=== PATIENT | male | born 1995 | race African-American/Black ===

== ENCOUNTER 2020-06-14 | Emergency (ER) | payer OTHER ==
[2020-06-14] MEDS ORDERED: TORADOL PO (00:50)
== END 2020-06-14 01:15 | disposition home or self-care (01) ==
DX: L60.0 Ingrowing nail (principal)

== ENCOUNTER 2020-07-01 | Emergency (ER) | payer OTHER ==
[~2020-07-01] MED LIST: TORADOL PO
[2020-07-01] MEDS ORDERED: TESSALON PERLE100 MG PO (16:59)
== END 2020-07-01 17:05 | disposition home or self-care (01) ==
DX: B34.9 Viral infection, unspecified (principal); E66.9 Obesity, unspecified; Z20.822 Contact with and (suspected) exposure to COVID-19

== ENCOUNTER 2021-12-04 20:57 | Emergency (ER) | payer OTHER ==
[~2021-12-04] VITALS: Ht 170.2 cm; Wt 150.0 kg
[~2021-12-04 20:57] MED LIST changes: +TESSALON PERLE100 MG PO
[2021-12-04] MEDS ORDERED: GENTAMICIN SULF5 ML OU (21:56)
[2021-12-04] MEDS ORDERED: CORTISPORIN OTI10 ML AD (21:56)
[2021-12-05 02:09] VITALS: BP 153/97
== END 2021-12-04 23:00 | disposition home or self-care (01) ==
LOC: ED 20:57
DX: H60.91 Unspecified otitis externa, right ear (principal); H10.9 Unspecified conjunctivitis; E66.9 Obesity, unspecified

== ENCOUNTER 2022-08-25 21:46 | Emergency (ER) | payer OTHER ==
[~2022-08-25] VITALS: Ht 167.6 cm; Wt 145.2 kg
[~2022-08-25 21:46] MED LIST changes: +CORTISPORIN OTI10 ML AD; +GENTAMICIN SULF5 ML OU
[2022-08-25 23:18] LABS: BASO% 0.5 % (0-3); EOS% 3.5 % (0-8); HEMATOCRIT 47.6 % (39.0-50.0); IMMATURE GRANULOCYTES 0.1 % (0.0-5.0); LYMPH% 24.3 % (15-41); MEAN CELL VOLUME 84.8 fL CALC (80.0-100.0); MEAN CORPUSCULAR HGB 26.7 pG CALC (26.0-32.0); MEAN CORPUSCULAR HGB CONC 31.5 g/dL CAL (32.0-36.0); MONO% 8.1 % (2-13); NEUT# 6.54 thou/uL (1.82-7.42); NEUT% 63.5 % (42-76); RED BLOOD COUNT 5.61 mill/uL (4.70-6.10)
[2022-08-25 23:36] LABS: ALBUMIN 4.5 g/dL (3.2-5.0); ALKALINE PHOSPHATASE 70 u/l (38-126); ANION GAP 15 (6-22 (CALC)); BILIRUBIN, TOTAL 0.3 mg/dL (0.2-1.3); BUN 13 mg/dL (9-20); BUN/CREATININE RATIO 16 (12-20 (CALC)); CARBON DIOXIDE 24 mmol/l (22-30); CHLORIDE 107 mmol/l (95-108); CREATININE 0.8 mg/dL (0.7-1.3); GFR FOR AFR.AMER. > 60 ML/MIN (>=60 (CALC)); GFR OTHER RACES > 60 ML/MIN (>=60 (CALC)); POTASSIUM 3.8 mmol/l (3.5-5.1); SGOT/AST 25 u/l (17-59); SODIUM 142 mmol/l (137-146); TOTAL PROTEIN 7.8 g/dL (6.3-8.2)
[2022-08-26 00:45] VITALS: BP 125/84
== END 2022-08-26 00:45 | disposition home or self-care (01) ==
LOC: ED 21:46
PROVIDERS: Emergency Medicine
DX: R53.1 Weakness (principal); E66.9 Obesity, unspecified

== ENCOUNTER 2023-05-01 18:46 | Emergency (ER) | payer OTHER ==
[~2023-05-01] VITALS: Ht 167.6 cm; Wt 146.0 kg
[2023-05-01 19:59] VITALS: BP 137/83
[2023-05-01] MEDS ORDERED: levoFLOXacin 500 MG TAB PO ONE (20:05)
[2023-05-01] MEDS ORDERED: Diph, Acellular Pertussis, Tet 0.5 ML/VIAL (Tdap) SDV IM ONE (20:05)
[2023-05-01] MEDS ORDERED: LEVOFLOXACIN750 MG PO (20:08)
[2023-05-01 20:15] VITALS: BP 132/77
[2023-05-01 21:03] VITALS: BP 132/77
== END 2023-05-01 21:03 | disposition home or self-care (01) ==
LOC: ED 18:46
DX: S91.332A Puncture wound without foreign body, left foot, initial encounter (principal); J45.909 Unspecified asthma, uncomplicated; E66.9 Obesity, unspecified; W45.0XXA Nail entering through skin, initial encounter; Y92.009 Unspecified place in unspecified non-institutional (private) residence as the place of occurrence of the external cause